=== PATIENT | male | born 1980 | race Two or more races ===

== ENCOUNTER 2024-11-03 07:25 | Emergency (ER) | payer OTHER ==
[~2024-11-03] VITALS: Ht 182.9 cm; Wt 83.9 kg
[2024-11-03 09:41] LABS: BASO % 0.6 % (0.1-1.2); EOS # 0.02 (0.04-0.54); EOS % 0.4 % (0.7-7.0); LYMPH # 0.85 (1.18-3.74); LYMPH % 17.7 % (19.3-53.1); MEAN PLATELET VOLUME 10.60 fl (9.4-12.4); MONO # 0.70 (0.24-0.82); NEUT # 3.18 (1.56-6.13); NEUT % 66.5 % (34.0-71.1); RED CELL DISTRIBUTION WIDTH 12.5 % (11.6-14.4)
[2024-11-03 09:43] LABS: MONO % 14.6 % (4.7-12.5)
[2024-11-03] MEDS ORDERED: TAMSULOSIN HCL 0.4 MG CAP PO ONE (10:00)
[2024-11-03 10:11] LABS: URINE APPEARANCE Clear; URINE BILIRRUBIN Negative (NEGATIVE); URINE BLOOD Moderate; URINE COLOR Yellow; URINE GLUCOSE Negative (NEGATIVE); URINE KETONE Negative (NEGATIVE); URINE LEUKOCYTE Negative; URINE NITRATE Negative; URINE PROTEIN Negative (NEGATIVE); URINE UROBILINOGEN 0.2 E.U./dl
[2024-11-03 10:12] LABS: URINE BACTERIA 4.7 uL (0.0-1933); URINE RBC 82.9 uL (0.0-20.8); URINE WBC 2.7 uL (0.0-23.2)
[2024-11-03 10:47] LABS: URINE CAST 0.00 uL (0.0-1.40); URINE EPITHELIAL CELLS 0.7 uL (0.0-38.8)
== END 2024-11-03 12:20 | disposition home or self-care (01) ==
LOC: ER 07:25
PROVIDERS: Emergency Medicine
DX: R10.9 Unspecified abdominal pain (principal)